=== PATIENT | male | born 1945 | race Caucasian/White ===

== ENCOUNTER 2023-12-15 17:03 | Emergency (ER) | payer MEDICARE, BC ==
[2023-12-15 17:16] VITALS: RESP 18; TEMP 97.4
--- NOTE | 2023-12-15 17:21 | ED ---
Neuro HPI - General Chief Complaint: Fall Stated Complaint: Fall/Head Injury Time Seen by Provider: 12/15/23 17:20 Source: patient Mode of arrival: ambulatory Limitations: no limitations - Related Data Allergies/Adverse Reactions: Allergies Allergy/AdvReac Type Severity Reaction Status Date / Time No Known Allergies Allergy Verified 12/15/23 17:16 Review of Systems ROS Statement: Those systems with pertinent positive or pertinent negative responses have been documented in the HPI. ROS Other: All systems not noted in ROS Statement are negative. General Exam Limitations: no limitations Past Medical History Past Medical History: Atrial Fibrillation History of Any Multi-Drug Resistant Organisms: None Reported Past Surgical History: No Surgical Hx Reported Smoking Status: Unknown if ever smoked Past Alcohol Use History: None Reported Past Drug Use History: None Reported Course Vital Signs 12/15/23 17:09 Temperature 97.4 F L Pulse Rate 55 L Respiratory 18 Rate Blood Pressure 107/66 O2 Sat by Pulse 98 Oximetry Disposition Referrals: None,Stated [Primary Care Provider] - 1-2 days
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
[2023-12-15] MEDS: LABETALOL 5 MG/ML VIAL MDV IVP STA ×2 (17:44)
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
[2023-12-15] MEDS: LORazepam 2 MG/ML INJ IV STA (17:50)
[2023-12-15] MEDS: SODIUM CHLORIDE 0.9% 1,000 ML IV STA (17:50)
[2023-12-15 18:05] LABS: Basophils # (A) 0.1 k/uL (0-0.2); Basophils % (A) 1 %; Eosinophils # (A) 0.3 k/uL (0-0.7); Eosinophils % (A) 5 %; HCT 44.5 % (39.0-53.0); HGB 14.3 gm/dL (13.0-17.5); Lymphocytes # (A) 1.1 k/uL (1.0-4.8); Lymphocytes % (A) 20 %; MCH 32.4 pg (25.0-35.0); MCHC 32.2 g/dL (31.0-37.0); MCV 100.6 fL (80.0-100.0); Mean Platelet Volume 8.1; Monocytes # (A) 0.3 k/uL (0-1.0); Monocytes % (A) 6 %; Neutrophils # (A) 3.5 k/uL (1.3-7.7); Neutrophils % (A) 66 %; Platelet Count 194 k/uL (150-450); RBC 4.43 m/uL (4.30-5.90); RDW 11.7 % (11.5-15.5); WBC 5.4 k/uL (3.8-10.6)
[2023-12-15 18:07] LABS: INR 1.3 (<1.2); Prothrombin Time 13.5 sec (10.0-12.5)
[2023-12-15 18:09] LABS: ALT 22 U/L (4-49); AST 28 U/L (17-59); African American GFR (CKD) >90 (>60 ml/min/1.73 sqM); Albumin 4.8 g/dL (3.5-5.0); Alcohol <10 mg/dL; Alkaline Phosphatase 53 U/L (38-126); Anion Gap 7 mmol/L; Blood Urea Nitrogen 20 mg/dL (9-20); Calcium 9.9 mg/dL (8.4-10.2); Carbon Dioxide 24 mmol/L (22-30); Chloride 103 mmol/L (98-107); Glucose 105 mg/dL (74-99); Non-African American GFR(CKD) 88 (>60 ml/min/1.73 sqM); Potassium 4.5 mmol/L (3.5-5.1); Sodium 134 mmol/L (137-145); Total Bilirubin 0.5 mg/dL (0.2-1.3); Total Protein 7.2 g/dL (6.3-8.2)
[2023-12-15] MEDS: DIPH,PERTUS(ACELL)TETVAC-LF 0.5 ML VIAL IM ONE (18:26)
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
[2023-12-15 21:53] VITALS: BP 131/77; PULSE 58
== END 2023-12-15 22:05 | disposition home or self-care (01) ==
LOC: EC 17:03
DX: S01.81XA Laceration without foreign body of other part of head, initial encounter (principal); S06.0XAA Concussion with loss of consciousness status unknown, initial encounter; S66.912A Strain of unspecified muscle, fascia and tendon at wrist and hand level, left hand, initial encounter; R40.2410 Glasgow coma scale score 13-15, unspecified time; Z91.011 Allergy to milk products; Z23 Encounter for immunization; W18.30XA Fall on same level, unspecified, initial encounter; Y93.55 Activity, bike riding
CPT/HCPCS: 93005; 86900; 86901; 80053; 84484; 85025; 85610; 85730; 86850; 72170; 73110; 73562; 71045; 72125; 70486; 70450; 90715; 99284; 90471; 12013; G0480; 36415; 80320